=== PATIENT | male | born 1965 | race Caucasian/White ===

== ENCOUNTER 2020-07-16 07:16 | Emergency (ER) | payer OTHER, SELFPAY ==
--- NOTE | ~2020-07-16 | CT_ITS ---
EXAMINATION: CT abdomen pelvis w con DATE: 07/16/2020 08:31 INDICATION: Lower abdominal pain for 4 days. Nausea, loose stools. History of diverticulitis. TECHNIQUE: Computed tomography (CT) of the abdomen and pelvis was performed with 100 cc Omnipaque 350 intravenous contrast. Automated exposure control and iterative reconstruction technique were employe d. Exam dose: 1144.54 mGy-cm total exam DLP. COMPARISON: 05/20/2019 CT abdomen pelvis FINDINGS: The lung bases are clear. Normal heart size. No pericardial or pleural effusion. Very small sliding hiatal hernia. Diffuse hepatic steatosis. No hepatic space-occupying mass lesion is detected. Status post cholecystectomy. No bile duct or pancreatic duct dilatation. No pancreatic mass lesion or calcification. Normal splenic size. Normal morphology of the adrenal glands. Nonobstructing 3.7 mm left renal calculus. No ureteral calculus or hydroureteronephrosis is noted on either side. No renal mass lesion. Normal caliber of the abdominal aorta. No intraperitoneal or retroperitoneal or pelvic mass lesion or adenopathy or ascites is evident. The prostate gland, seminal vesicles and urinary bladder are unremarkable. There are scattered diverticula of the left colon; no CT evidence of diverticulitis. No bowel obstruc tion, bowel wall thickening, pneumatosis or intraperitoneal free air is detected. The appendix is not located. Included skeletal structures are unremarkable. IMPRESSION: Diverticulosis of left colon; no CT evidence of diverticulitis Very small sliding hiatal hernia Hepatic steatosis Status post cholecystectomy Nonobstructing 3.7 mm left renal calculus Reviewed, dictated and finalized at [facility] Reviewed, dictated and finalized at [facility].
--- NOTE | ~2020-07-16 | XR_ITS ---
XR abdomen/kub 1V DATE: 07/16/2020 08:43 INDICATION: Right flank pain for 4 days. History of kidney stones. TECHNIQUE: AP projection, 2 views COMPARISON: 07/26/2020 CT abdomen pelvis FINDINGS: Surgical clips, right upper quadrant, consistent with cholecystectomy. There is normal excretion of contrast material by both kidneys, without evidence of hydronephrosis. N o renal mass lesion or urinary bladder intraluminal filling defect is identified. A gas distended small bowel segments overlies the left lower quadrant of the abdomen. There is a prom inent of fecal material in the right colon. No bowel obstruction is evident. IMPRESSION: Status post cholecystectomy Nonspecific bowel gas pattern, without evidence of obstruction Reviewed, dictated and finalized at [facility] Reviewed, dictated and finalized at [facility].
[2020-07-16 07:20] VITALS: BP 146/93; PULSE 99; RESP 16; TEMP 37.1; O2SAT 100
[2020-07-16 07:40] VITALS: BP 140/100; PULSE 89; RESP 18; O2SAT 96
[2020-07-16 07:48] LABS: Basophils Percent Auto 0.5 % (0.2-1.2); Eosinophils Absolute Auto 0.2 K/mm3 (0-0.3); Eosinophils Percent Auto 2.9 % (0-4.4); Hematocrit 45.3 % (42.0-52.0); Hemoglobin 14.9 g/dL (14.0-18.0); Immature Granulocyte Absolute 0.05 K/mm3 (0.00-0.031); Immature Granulocyte Percent A 0.6 % (0-0.5); Lymphocytes Absolute Auto 2.45 K/mm3 (0.9-3.2); Lymphocytes Percent Auto 30.1 % (18.3-44.2); Mean Corpuscular HGB Conc 32.9 g/dl (32-36); Mean Corpuscular Hemoglobin 29.4 pg (26-34); Mean Corpuscular Volume 89.5 fl (80-100); Mean Platelet Volume 8.5 fl (7.4-10.4); Monocytes Absolute Auto 0.7 K/mm3 (0.1-0.6); Monocytes Percent Auto 8.6 % (2.6-8.5); Neutrophils Absolute Auto 4.7 K/mm3 (1.3-6.7); Neutrophils Percent Auto 57.3 % (45.5-73.1); Platelet Count Result 275 k/mm3 (150-375); Red Blood Count 5.06 M/mm3 (4.6-6.20); Red Cell Distribution Width 13.2 % (11.5-14.5); White Blood Count 8.1 K/mm3 (4.5-10.0)
[2020-07-16 07:52] LABS: Alanine Aminotransferase 39 U/L (4-50); Albumin Level 4.8 g/dL (3.5-5.1); Alkaline Phosphatase 94 U/L (38-126); Anion Gap 12 mmol/L (8-16); Aspartate Amino Transferase 28 U/L (17-59); Bilirubin,Total 0.5 mg/dL (0.2-1.3); Blood Urea Nitrogen 14 mg/dL (9-20); Calcium 9.5 mg/dL (8.4-10.2); Carbon Dioxide 23 mmol/L (22-30); Chloride 106 mmol/L (98-107); Estimated CRCL calculation 95 ml/min; Estimated Glomerular Filt Rate > 60; Glucose 101 mg/dL (75-110); Lipase 83 U/L (23-300); Potassium 4.3 mmol/L (3.4-5.0); Sodium 141 mmol/L (137-145)
[2020-07-16 08:00] LABS: Add Urine Microscopic? NO; Appearance Urine Clear (Clear); Bilirubin Urine Negative (Negative); Blood Urine Negative (Negative); Color Urine Yellow (Yellow); Glucose Urine UA Negative (Negative); Ketones Urine Negative (Negative); Leukocyte Esterase Ur Negative LEU/UL (Negative); Mucus Urine Rare /lpf; Nitrate Urine Negative (Negative); Protein Urine Negative (Negative); RBC Urine 0-2 /hpf (0-2); Specific Grav Ur 1.015 (1.001-1.035); Squamous Epithelial Cell Urine Rare /hpf (Few); Urobilinogen Urine Negative mg/dL (<2.0); WBC Urine 0-3 /hpf
--- NOTE | 2020-07-16 08:08 | ED.ABDPAIN ---
HPI - Abdominal Pain General Chief Complaint: Abdominal Pain Stated Complaint: abd pain Time Seen by Provider: 07/16/20 08:02 Source: patient Mode of arrival: ambulatory Limitations: no limitations History of Present Illness HPI narrative: This patient is a 54 year old male with history of diverticulitis who presents for evaluation right lower abdominal pain. His pain has been present for 4 days, and his pain has been constant. He also states his pain radiates around to his right lower back. Pain is worse with movement and his waist line on his close. He has nausea but denies vomiting, fever or chills. HE has been taking tylenol for his pain, and his last dose was last night. He rates his pain 3/10 and he states he does not need anything for pain. Onset (ago): day(s) (4) Related Data Allergies Allergy/AdvReac Type Severity Reaction Status Date / Time Sulfa (Sulfonamide Allergy Mild BLISTERING Verified 07/16/20 08:42 Antibiotics) azithromycin Allergy Unknown Unknown Verified 07/16/20 08:42 naproxen Allergy Unknown Unknown Verified 07/16/20 08:42 sulfanilamide Allergy Unknown Unknown Verified 07/16/20 08:42 codeine AdvReac Severe HALLUCINATI Verified 07/16/20 08:42 ONS Review of Systems Review of Systems: All systems reviewed & are unremarkable except as noted in HPI and below Constitutional: Constitutional: Denies chills and Denies fever(s) Cardiovascular: Cardiovascular: Denies chest pain Respiratory: Respiratory: Denies cough and Denies dyspnea Gastrointestinal: Gastrointestinal: Reports abdominal pain, Reports diarrhea, Reports nausea and Denies vomiting Genitourinary: Genitourinary: Denies hematuria and Denies dysuria Musculoskeletal: Musculoskeletal: Reports back pain [facility] Past Medical History Medical History (Updated 07/16/20 @ 09:38 by Jessica Miller MD) Diverticulitis Surgical History Surgical History (Updated 07/16/20 @ 08:10 by Jessica Miller MD) History of cholecystectomy Hx of appendectomy Family History Family History (Updated 06/05/14 @ 07:13 by DOCTOR UNKNOWN) Mother Family history of renal cell carcinoma Family history of kidney disease Father Family history of Alzheimer's disease Social History Social History Smoking end date: 10/09/00 Alcohol intake: current Exam Const: General: no acute distress and alert Orientation/consciousness: patient oriented x3 Chest: Chest palpation & inspection: normal inspection of the chest Resp: Effort & Inspection: normal respiratory effort and no retractions Auscultation: clear to auscultation bilaterally Cardio: Rate: regular rate Rhythm: regular rhythm Heart sounds: no murmurs GI: GI Palp: Yes Soft to palpation, Yes Tenderness to palpation present (GI) (bilateral lower quadrant), No Guarding due to palpation present (GI) and No Rigid due to palpation : General: Yes CVA tenderness on the right Course Reevaluation(s) Reevaluation #1: Patient reports his abdominal pain was intermittently located mid abdomen cramp. His pain has resolved now. I have discussed CT results showing no acute findings but he does have a left kidney stone. I discussed discharge plan with antispasmodic and follow up with PCP/GI Date: 07/16/20 Time: 09:35 Vital Signs Vital signs: Vital Signs Temperature 98.8 F 07/16/20 07:20 Pulse Rate 99 07/16/20 07:20 Respiratory Rate 16 07/16/20 07:20 Blood Pressure 146/93 H 07/16/20 07:20 Pulse Oximetry 100 07/16/20 07:20 Temperature 98.8 F 07/16/20 07:20 Pulse Rate 89 07/16/20 09:55 Respiratory Rate 19 07/16/20 09:55 Blood Pressure 137/98 H 07/16/20 09:55 Pulse Oximetry 98 07/16/20 09:55 MDM - Abdominal Pain Lab Data Attestation: I reviewed the patient's lab results. Result diagrams: 07/16/20 07:34 07/16/20 07:34 Labs: Lab Results 07/16/20 07/16/20 07/16/20 Range/Units 07:34 07:34 07:34 WBC 8.1
--- NOTE | 2020-07-16 08:22 | PC.NURSE ---
pt to radiology at this time.
[2020-07-16 09:07] VITALS: O2SAT 97
[2020-07-16 09:15] VITALS: O2SAT 97
[2020-07-16 09:16] VITALS: BP 137/98; O2SAT 97
[2020-07-16 09:55] VITALS: BP 137/98; PULSE 89; RESP 19; O2SAT 98
== END 2020-07-16 09:56 | disposition home or self-care (01) ==
PROVIDERS: Emergency Provider General Practice
DX: R10.9 Unspecified abdominal pain (principal); N20.0 Calculus of kidney; K76.0 Fatty (change of) liver, not elsewhere classified; K57.90 Diverticulosis of intestine, part unspecified, without perforation or abscess without bleeding; K44.9 Diaphragmatic hernia without obstruction or gangrene
CPT/HCPCS: 36415; 74018; 74177; 80053; 81003; 83690; 85025; 99284; Q9967

== ENCOUNTER 2021-11-26 07:28 | Outpatient (CLI) | payer OTHER, SELFPAY ==
--- NOTE | ~2021-11-26 | MR_ITS ---
EXAMINATION: MR brain/brain stem wo/w con EXAM DATE: 11/26/2021 08:48 INDICATION: G45.9 - Transient cerebral ischemic attack, unspecified. Migraine, left facial and body n umbness. TECHNIQUE: Magnetic resonance imaging (MRI) of the brain/brain stem obtained without contrast. Sagit león T1, axial diffusion, gradient echo (T2*), T1, T2, FLAIR sequences obtained. Patient was then inj ected with 20 cc intravenous Multihance contrast. Axial and coronal postcontrast T1 weighted sequence s obtained. Comparison is made to prior examination from 10/05/2015, 11/11/2005. FINDINGS: Again there is vague slightly increased T2/flair signal intensity in the posterior aspect o f the right frontal lobe extending to the ventricle without signal abnormality on other sequences or enhancement. Long-term stability is consistent with benign etiology, potentially could be congenital migrational abnormality, maybe antonio matter heterotopia. There are scattered subcortical and periventricular punctate hyperintensities most likely mild microa ngiopathy. There are no areas of restricted diffusion to suggest acute infarction. There is no acute hemorrhage seen on the T2*, a hemosiderin sensitive sequence. No intraparenchymal brain mass. The v entricles are normal in size. There are no extra-axial collections. Flow voids are seen in the cere bral arteries on the T2-weighted sequences consistent with their expected patency. The orbits are un remarkable. Soft tissue is unremarkable. There are no areas of abnormal enhancement on the postcon trast images. IMPRESSION: 1. Stable vague nonspecific right frontal lobe signal abnormality from cortex to lateral ventricle. 2. Mild microangiopathy. Reviewed, dictated and finalized at [facility]
[2021-11-26 08:28] LABS: Estimated Glomerular Filt Rate > 60
== END 2021-11-26 07:29 | disposition home or self-care (01) ==
LOC: ANHIMG 07:32
PROVIDERS: Visit Provider Psychiatry & Neurology Neurology
DX: G45.9 Transient cerebral ischemic attack, unspecified (principal); I73.9 Peripheral vascular disease, unspecified
CPT/HCPCS: 70553; A9577

== ENCOUNTER 2021-11-26 14:31 | Outpatient (CLI) | payer OTHER, SELFPAY ==
--- NOTE | 2021-11-26 14:42 | ECHO_ITS ---
Patient Info Name: Brijesh Gordon Age: 56 years : 1965 Gender: Male Ht: 72 in Wt: 230 lbs BSA: 2.33 m2 HR: 81 bpm BP: 146 / 99 mmHg Technical Quality: Fair Exam Date: 11/26/2021 2:59 PM Exam Location: [facility] Patient Status: Outpatient Admit Date: 11/26/2021 Staff Ordering Physician: Gonzalo Flores MD Customer Experience Intern: Tara Ann RDCS Attending Provider: Gonzalo Flores MD Exam Type: CA echo doppler color flow Study Info Indications G45.9 - Transient cerebral ischemic attack, unspecified Complete two-dimensional, color flow and Doppler transthoracic echocardiogram is performed. Summary 1. Complete two-dimensional, color flow and Doppler transthoracic echocardiogram is performed. 2. Left ventricular chamber dimension is normal. 3. Left ventricular systolic function is normal, estimated at 60-65%. 4. The left ventricular diastolic function is grade I diastolic dysfunction. 5. E/e' 10 is mildly elevated. 6. Global longitudinal strain is normal at -17.9%. 7. The aortic valve is bicuspid. 8. There is mild aortic valve sclerosis. 9. There is mild aortic valve stenosis with a peak velocity of 254 cm/s, mean gradient of 16 mmHg, and aortic valve area of 1.9 cm2. 10. There is trace aortic valve regurgitation. 11. No pulmonary hypertension, estimated pulmonary arterial systolic pressure is 16 mmHg. 12. The aortic root size at the sinus of Valsalva is borderline dilated at 4.0 cm. Left Ventricle E/e' 10 is mildly elevated. Global longitudinal strain is normal at -17.9%. Left ventricular chamber dimension is normal. Left ventricular systolic function is normal, estimated at 60-65%. The left ventricular diastolic function is grade I diastolic dysfunction. Right Ventricle Right ventricular systolic function is normal and with normal TAPSE 2.8 cm. Right ventricular chamber dimension is normal. Left Atria Left atrial chamber dimension is normal. Right Atria Right atrial chamber dimension is normal. Aortic Valve The aortic valve is bicuspid. There is mild aortic valve sclerosis. There is mild aortic valve stenosis with a peak velocity of 254 cm/s, mean gradient of 16 mmHg, and aortic valve area of 1.9 cm2. There is trace aortic valve regurgitation. Pulmonic Valve There is no pulmonic regurgitation. Mitral Valve There is no mitral valve stenosis. There is no mitral valve regurgitation. Tricuspid Valve There is no tricuspid valve regurgitation. No pulmonary hypertension, estimated pulmonary arterial systolic pressure is 16 mmHg. Pericardium/Pleural There is no pericardial effusion. Inferior Vena Cava Normal inferior vena cava with >50% collapse upon inspiration consistent with normal right atrial pressure, 5 mmHg. Aorta The aortic root size at the sinus of Valsalva is borderline dilated at 4.0 cm. Left Ventricular Outflow Tract Name Value Normal LVOT 2D LVOT Diameter 2.4 cm LVOT Doppler LVOT Peak Gradient 4 mmHg LVOT Mean Gradient 2 mmHg LVOT VTI 24 cm LVOT VTI/AV VTI Ra
== END 2021-11-26 14:32 | disposition home or self-care (01) ==
LOC: ANHCARD 14:31
PROVIDERS: Visit Provider Psychiatry & Neurology Neurology
DX: G45.9 Transient cerebral ischemic attack, unspecified (principal); I35.8 Other nonrheumatic aortic valve disorders
CPT/HCPCS: 93306

== ENCOUNTER 2024-12-30 16:14 | Emergency (ER) | payer OTHER, SELFPAY ==
[2024-12-30 16:28] VITALS: BP 127/70; PULSE 63; RESP 19; TEMP 36.6; O2SAT 100
--- NOTE | 2024-12-30 17:24 | ED_ITS ---
HPI - Dental/Oral General Chief complaint: Dental/Oral Stated complaint: toothpain Time Seen by Provider: 12/30/24 17:11 Source: patient and RN notes reviewed Mode of arrival: ambulatory Limitations: no limitations History of Present Illness HPI Narrative: Patient presents today complaining of left-sided upper and lower dental pain x4 days. Believes he has a cracked tooth on the top. He does have a dentist appo intment in 2 days. Denies shortness of breath, fever, difficulty swallowing, or any additional symptoms. Currently rates his pain 04/17 and has been taking Tylenol. Related Data Home Medications ?Medication ?Instructions ?Recorded ?Confirmed ?Last Taken ?Type diclofenac sodium 75 mg 75 mg PO BID 04/30/21 11/15/21 Unknown History tablet,delayed release levothyroxine 25 mcg capsule 25 mcg PO DAILY 04/30/21 11/15/21 Unknown History omeprazole magnesium 20 mg 20 mg PO BID 04/30/21 11/15/21 Unknown History tablet,delayed release (Prilosec OTC) atorvastatin 10 mg tablet 10 mg PO DAILY 05/17/22 Unknown History amiodarone 400 mg tablet mg 12/30/24 Unknown History apixaban 5 mg tablet (Eliquis) mg 12/30/24 Unknown History dicyclomine 10 mg capsule mg 12/30/24 Unknown History metoprolol tartrate 37.5 mg tablet mg 12/30/24 Unknown History montelukast 10 mg tablet mg 12/30/24 Unknown History tizanidine 4 mg tablet mg 12/30/24 Unknown History Allergies Allergy/AdvReac Type Severity Reaction Status Date / Time Sulfa (Sulfonamide Allergy Mild BLISTERING Verified 12/30/24 16:24 Antibiotics) azithromycin Allergy Unknown Unknown Verified 12/30/24 16:24 naproxen Allergy Unknown Unknown Verified 12/30/24 16:24 sulfanilamide Allergy Unknown Unknown Verified 12/30/24 16:24 codeine AdvReac Severe HALLUCINATI Verified 12/30/24 16:24 ONS Review of Systems Review of Systems: CONSTITUTIONAL: Denies body aches, fever, chills, or sweats. EYES: Denies visual changes, redness, or discharge. ENT: Denies rhinorrhea, congestion, sore throat, or otalgia.+ dental pain CARDIOVASCULAR: Denies chest pain, palpitations, or edema. RESPIRATORY: Denies cough or dyspnea. GASTROINTESTINAL: Denies abdominal pain, nausea, vomiting, or diarrhea. GENITOURINARY: Denies dysuria or hematuria. SKIN: Denies rash, itching, or wounds. MUSCULOSKELETAL: Denies back pain, joint pain, or myalgia. NEUROLOGIC: Denies headache, numbness, tingling, or weakness. PSYCH: Denies depression or anxiety. [facility] Past Medical History Medical History Diverticulitis Surgical History Surgical History History of cholecystectomy Hx of appendectomy Family History Family History Mother Family history of renal cell carcinoma Family history of kidney disease Father Family history of Alzheimer's disease Social History Social History Smoking status: Never smoker Smoking end date: 10/09/00 Alcohol intake: current Substance use: current Substance use type: marijuana Do You Feel Safe in your Home?: Yes Lack of Transportation: No Lack of Food: Never True Current Housing: I Have Housing Concerned About Future Housing: No Difficulty Paying Gas/Electric Bills: No Difficulty Paying for Meds: No Currently Unemployed: No Education: Bachelor's Degree Difficulty w/ Childcare or Family Care: No Living arrangements: with family Occupation/Education: occupation Gender identity (if verbalized by the patient): Male Sexual Orientation (if Verbalized by the Patient): Straight or Heterosexual Comments At time of signature, I have reviewed and agree with nursing past medical, surgical, social and family history unless otherwise noted. Please see nursing chart for further information. There is no relevant family history pertinent to the presenting complaint Exam Narrative: GENERAL: Well-appearing, well-nourished, and in no acute distress. HEAD: Normocephalic, atraumatic. EYES: EOMI. No redness or drainage. Conjunctivae normal. ENT: Mucous membranes pink and moist. No trismus. No facial swelling. Tooth number 13 has obvious old fillings. No periapical abscess is noted to the upper or lower arch. NECK: Normal AROM. Supple. No lymphadenopathy. CHEST: No respiratory distress. EXTREMITIES: Normal range of motion. No edema. SKIN: Warm, dry, no rash. Capillary refill normal. Normal skin turgor. NEURO: No focal deficits. Alert and oriented x3. Gait steady. PSYCH: Normal affect. No signs of depression or anxiety. Course Course Level of Care: Express Care Visit Vital Signs Vital signs: Vital Signs Temperature 97.9 F 12/30/24 16:28 Pulse Rate 63 12/30/24 16:28 Respiratory Rate 19 12/30/24 16:28 Blood Pressure 127/70 12/30/24 16:28 Pulse Oximetry 100 12/30/24 16:28 Oxygen Delivery Room Air 12/30/24 16:28 Temperature 97.9 F 12/30/24 16:28 Pulse Rate 63 12/30/24 16:28 Respiratory Rate 19 12/30/24 16:28 Blood Pressure 127/70 12/30/24 16:28 Pulse Oximetry 100 12/30/24 16:28 Oxygen Delivery Room Air 12/30/24 16:28 Reviewed MDM - Dental/Oral MDM Narrative Medical decision making narrative: Patient will be started on a course of amoxicillin. Instructed to continue Tylenol. He is unable to take NSAIDs due to recent open heart surgery and allergy to naproxen. He will follow-up with his dentist as scheduled in 2 days. Anticipatory guidance and ED precautions given. Differential Diagnosis Differential diagnosis: Likely gingival abscess, dental caries, toothache, dental abscess and fracture of tooth Critical Care Time Critical Care Time Critical Care Time: No Discharge Plan Discharge Clinical Impression: Dentalgia Patient Disposition: Home, Self-Care Condition: Stable Instructions: Antibiotic Form, Dental Abscess (ED) Additional Instructions: Please take the amoxicillin as prescribed until gone. Continue Tylenol for pain. Follow-up with your dentist as scheduled in 2 days. As discussed, please go to the ER immediately with any worsening symptoms such as fever, shortness of breath, difficulty swallowing. Your blood pressure was elevated above 120/80 today at Urgent Care. This puts you above the threshold for follow up. Please schedule a followup visit with your personal physician as soon as possible, for further evaluation and treatment. Even blood pressure exceeding 120/80 may indicate pre-hypertension. Patient Language: Korean Prescriptions: New amoxicillin 875 mg tablet 875 mg PO Q12H 10 Days Qty: 20 0RF No Action tizanidine 4 mg tablet amiodarone 400 mg tablet montelukast 10 mg tablet dicyclomine 10 mg capsule Eliquis 5 mg tablet metoprolol tartrate 37.5 mg tablet atorvastatin 10 mg tablet 10 mg PO DAILY omeprazole magnesium [Prilosec OTC] 20 mg tablet,delayed release (DR/EC) 20 mg PO BID diclofenac sodium 75 mg tablet,delayed release (DR/EC) 75 mg PO BID levothyroxine 25 mcg capsule 25 mcg PO DAILY hyoscyamine sulfate [Levsin] 0.125 mg tablet 0.125 mg PO QID PRN (Reason: abdominal cramping) Qty: 14 0RF atomoxetine [Strattera] 25 mg capsule See Rx Instructions .ROUTE .COMPLEX Qty: 60 1RF Rx Instructions: take 50mg daily; guanfacine 1 mg tablet 1 mg PO .COMPLEX Qty: 60 1RF Rx Instructions: take 1mg twice a day; Follow-up/Referrals: Max,Larry Hernandez MD [Primary Care Provider] - Time of Disposition: 17:27
== END 2024-12-30 17:29 | disposition home or self-care (01) ==
PROVIDERS: Emergency Provider Nurse Practitioner; PCP Family Medicine
DX: K08.89 Other specified disorders of teeth and supporting structures (principal); Z87.891 Personal history of nicotine dependence; F12.90 Cannabis use, unspecified, uncomplicated
CPT/HCPCS: 99213; G0463